=== PATIENT | male | born 1975 | race Caucasian/White ===

== ENCOUNTER 2020-08-10 05:15 | Emergency (ER) | payer SELFPAY ==
[~2020-08-10] VITALS: Ht 157.5 cm; Wt 75.4 kg
--- NOTE | 2020-08-10 05:22 | NUR ---
INITIAL PT CONTACT. 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 PT DENIES ANY URINARY SYMPTOMS AT THIS TIME. HX OF KIDNEY STONES, "FEELS THE SAME." PT SITTING UPRIGHT ON GURNEY, ANXIOUS. PT PROVIDED URINE SAMPLE AT THIS TIME. PT PLACED ON CONTINUOUS MONITORING. CALL LIGHT AND PERSONAL BELONGINGS WITHIN REACH. ERP AT BEDSIDE.
[2020-08-10] MEDS ORDERED: ONDANSETRON 2MG/ML, 2ML IVPush ONE (05:30)
[2020-08-10] MEDS ORDERED: SODIUM CHLORIDE 0.9% 1,000ML IV ONE (05:30)
[2020-08-10] MEDS ORDERED: SODIUM CHLORIDE FLUSH 10ML SYR IVF ONE (05:30)
[2020-08-10] MEDS ORDERED: KETOROLAC 30 MG/1 ML IVPush ONE (05:30)
[2020-08-10] MEDS ORDERED: MORPHINE SULFATE 4 MG/ML, 1ML ONE ×2 (05:36→06:04)
[2020-08-10] MEDS ORDERED: ONDANSETRON 2MG/ML, 2ML ONE (05:36)
[2020-08-10] MEDS ORDERED: KETOROLAC 30 MG/1 ML ONE (05:36)
[2020-08-10] MEDS: MORPHINE SULFATE 4 MG/ML, 1ML IVPush PRN ×2 (05:45→06:10)
[2020-08-10 06:04] LABS: BASOPHILS % (AUTO) 1 % (0-1); EOSINOPHILS % (AUTO) 2 % (1-7); LYMPHOCYTES % (AUTO) 48 % (22-44); MEAN CORPUSCULAR HEMOGLOBIN 29.5 pg (27.5-34.5); MEAN CORPUSCULAR HGB CONC 34.6 g/dL (33.2-36.2); MEAN PLATELET VOLUME 9.7 fL (7.4-10.4); MONOCYTES % (AUTO) 8 % (2-9); NEUTROPHILS % (AUTO) 42 % (42-75); PLATELET COUNT 201 x10^3/uL (130-400); RED BLOOD COUNT 5.63 x10^6/uL (4.38-5.82); RED CELL DISTRIBUTION WIDTH 13.5 % (9.4-14.8)
--- NOTE | 2020-08-10 06:05 | NUR ---
RETURNED FROM IMAGING
[2020-08-10 06:08] LABS: ANION GAP 10 mmol/L (5-15); CALCIUM 8.4 mg/dL (8.5-10.1); CHLORIDE 108 mmol/L (98-107); CREATININE 0.85 mg/dL (0.7-1.3)
[2020-08-10 06:15] LABS: MICROSCOPIC INDICATED
--- NOTE | 2020-08-10 06:53 | NUR ---
REPORT TO YESSENIA SUAREZ
--- NOTE | 2020-08-10 07:07 | NUR ---
ASSUMING CARE OF PATIENT AFTER BEDSIDE REPORT FROM YOSSI. PT RESTING IN BED COMFORTABLY. VSS. VELEZ.
--- NOTE | 2020-08-10 07:22 | NUR ---
DR. AVINA TO BEDSIDE TO DISSCUSS RESULTS. PT RESTING IN BED. VSS. VELEZ.
[2020-08-10 08:22] VITALS: BP 126/79
--- NOTE | 2020-08-10 08:34 | NUR ---
Patient given discharge instructions and they have confirmed that they understand the instructions. Patient ambulatory with steady gait. NAD, all questions answered appropriately, denies additional needs at this time. No personal belongings left in room after discharge.
== END 2020-08-10 08:35 | disposition home or self-care (01) ==
LOC: ED 07:37
DX: N20.1 Calculus of ureter (principal)
CPT/HCPCS: 36415; 74176; 80048; 81001; 82040; 85025; 87086; 96361; 96374; 96375; 99284; J1885; J2270; J2405; J7030

== ENCOUNTER 2020-08-24 11:57 | Observation (INO) | payer SELFPAY ==
[~2020-08-24] VITALS: Ht 157.5 cm; Wt 76.8 kg
--- NOTE | 2020-08-24 12:40 | NUR ---
PT C/O LEFT FLANK PAIN STARTED YESTERDAY AFTERNOON. PT SENT BY UROLOGY SUSY, PT STATES HE RECEIVED A SHOT OF PAIN MED BUT DOESN'T KNOWN WHAT KIND. PT CONNECTED TO MONITORING. CALL LIGHT IN REACH. AWAITING ORDERS.
--- NOTE | 2020-08-24 13:17 | NUR ---
PIV PLACED BY DIRECTOR OF NURSING, LABS DRAWN AND SENT TO LAB WITH LAB SLIP. UA COLLECTED VIA STRAIGHT CATH AND TAKEN TO LAB. PT STATES PAIN IS 3/10, REFUSES PAIN MEDS AT THIS TIME.
[2020-08-24 13:20] LABS: BASOPHILS % (AUTO) 0 % (0-1); EOSINOPHILS % (AUTO) 1 % (1-7); LYMPHOCYTES % (AUTO) 23 % (22-44); MEAN CORPUSCULAR HEMOGLOBIN 29.6 pg (27.5-34.5); MEAN CORPUSCULAR HGB CONC 34.7 g/dL (33.2-36.2); MEAN PLATELET VOLUME 9.5 fL (7.4-10.4); MONOCYTES % (AUTO) 9 % (2-9); NEUTROPHILS % (AUTO) 68 % (42-75); PLATELET COUNT 190 x10^3/uL (130-400); RED BLOOD COUNT 5.63 x10^6/uL (4.38-5.82); RED CELL DISTRIBUTION WIDTH 13.4 % (9.4-14.8)
[2020-08-24 13:28] LABS: MICROSCOPIC NOT IND
[2020-08-24 13:28] LABS: ANION GAP 7 mmol/L (5-15); CALCIUM 8.7 mg/dL (8.5-10.1); CHLORIDE 107 mmol/L (98-107)
[2020-08-24 13:31] LABS: ALANINE AMINOTRANSFERASE 68 U/L (12-78); ALKALINE PHOSPHATASE 75 U/L (45-117); TOTAL PROTEIN 7.8 g/dL (6.4-8.2)
--- NOTE | 2020-08-24 13:44 | NUR ---
ALL RESULTS ARE BACK AT THIS TIME. CHART UP FOR RECHECK.
--- NOTE | 2020-08-24 13:47 | NUR ---
ORIANAD TO CONSULT UROLOGY
--- NOTE | 2020-08-24 14:33 | NUR ---
RAPID COVID SWAB COLLECTED AND TAKEN TO LAB. PT TO BE ADMIT FOR SURGERY.
[2020-08-24] MEDS ORDERED: ONDANSETRON ODT 4 MG PO PRN (15:00)
[2020-08-24] MEDS ORDERED: morphine SULFATE 10 MG/ML, 1ML IVPush PRN (15:00)
[2020-08-24] MEDS ORDERED: ACETAMINOPHEN 325 MG TABLET PO PRN ×2 (15:00→17:30)
[2020-08-24] MEDS ORDERED: HYDROcodone/APAP 5/325 TABLET PO PRN (15:00)
[2020-08-24] MEDS ORDERED: ONDANSETRON 2MG/ML, 2ML IVPush PRN ×2 (15:00→17:30)
--- NOTE | 2020-08-24 15:08 | NUR ---
REPORT GIVEN TO ELENA SUAREZ. PT RTG TO SURG FLOOR
[2020-08-24 16:50] VITALS: BP 130/78
[2020-08-24] MEDS ORDERED: FENTANYL PF 100 MCG/2ML ONE ×2 (17:15→17:52)
[2020-08-24] MEDS ORDERED: MIDAZOLAM 1 MG/ML, 2ML ONE (17:15)
[2020-08-24] MEDS ORDERED: SODIUM CHLORIDE 0.9% PF 10ML ONE (17:21)
[2020-08-24] MEDS ORDERED: LIDOCAINE-MPF 2% ,5ML ONE (17:21)
[2020-08-24] MEDS ORDERED: OMNIPAQUE 350 MG/ML, 50 ML BOTTLE ONE (17:21)
[2020-08-24] MEDS ORDERED: DEXAMETHASONE 4 MG/ML, 1ML ONE (17:21)
[2020-08-24] MEDS ORDERED: PROPOFOL 10 MG/ML, 20ML ONE (17:21)
[2020-08-24] MEDS ORDERED: ONDANSETRON 2MG/ML, 2ML ONE (17:21)
[2020-08-24] MEDS ORDERED: CEFAZOLIN 1,000 MG ONE (17:21)
[2020-08-24] MEDS ORDERED: CHLORHEXIDINE 15 ML UDC ONE (17:26)
[2020-08-24] MEDS ORDERED: hydrALAzine 20 MG/ML, 1ML IV PRN (17:30)
[2020-08-24] MEDS ORDERED: FENTANYL PF 100 MCG/2ML IV PRN (17:30)
[2020-08-24] MEDS ORDERED: EPHEDRINE 50 MG/ML, 1ML IVPush PRN (17:30)
[2020-08-24] MEDS ORDERED: OXYcodone 5 MG/5 ML ORAL.SOL UDC PO PRN (17:30)
[2020-08-24] MEDS ORDERED: LABETALOL 5MG/ML, 20ML IV PRN (17:30)
[2020-08-24] MEDS ORDERED: PROMETHAZINE 25 MG/ML, 1ML IVPush PRN (17:30)
[2020-08-24] MEDS ORDERED: CHLORHEXIDINE 15 ML UDC PO ONE ×2 (17:30)
[2020-08-24] MEDS ORDERED: HYDROmorphone 1 MG/ML, 1ML INJ IVPush PRN (17:30)
[2020-08-24] MEDS ORDERED: OMNIPAQUE 350 MG/ML, 50 ML BOTTLE IV ONE (17:54)
[2020-08-24] MEDS: KETOROLAC 30 MG/1 ML IV PRN (19:26)
[2020-08-24 19:29] VITALS: BP 125/79
[2020-08-25 02:00] VITALS: BP 110/64
[2020-08-25] MEDS: KETOROLAC 30 MG/1 ML IV PRN (08:23)
[2020-08-25 08:55] VITALS: BP 122/72
[2020-08-25 14:00] VITALS: BP 118/70
== END 2020-08-25 15:44 | disposition home or self-care (01) ==
LOC: ED 14:34 → SUATTDRO 14:40 → INTOOBSV 15:27 → 4NW 15:27
PROVIDERS: ADMIT Family Medicine; ATTEND Family Medicine
DX: N20.1 Calculus of ureter (principal); Z20.822 Contact with and (suspected) exposure to COVID-19; N21.1 Calculus in urethra; N13.5 Crossing vessel and stricture of ureter without hydronephrosis; E66.9 Obesity, unspecified; Z68.31 Body mass index [BMI] 31.0-31.9, adult; Z87.442 Personal history of urinary calculi; Z79.899 Other long term (current) drug therapy
CPT/HCPCS: 36415; 52320; 52332; 74420; 80053; 81003; 82360; 85025; 87635; 88300; 96374; 96376; 99284; C1726; C1769; C2617; G0378; J0690; J1100; J1885; J2250; J2405; J2704; J3010; J3490; Q9967